=== PATIENT | male | born 1960 | race Caucasian/White ===

== ENCOUNTER 2019-05-22 17:00 | Emergency (ER) | payer OTHER ==
[2019-05-22] MEDS ORDERED: ROPIVACAINE 0.5% PF 20 ML VIAL SUBQ STA (17:24)
[2019-05-22] MEDS ORDERED: TETANUS/DIPHTHERIA/PERTUSSIS 0.5 ML SYRINGE IM ONE (17:25)
--- NOTE | 2019-05-22 17:27 | ED Physician Documentation ---
PD HPI UPPER EXT INJURY - Stated complaint Stated Complaint: LT FING LAC - Chief complaint Chief Complaint: Ext Problem - History obtained from History obtained from: Patient - History of Present Illness Location: Left, Finger (3rd) Where injury occurred: Home Timing - onset: How many hours ago (1) Timing - duration: Hours (1) Timing - details: Abrupt onset Pain level max: 5 Pain level now: 4 Improved by: Rest, Ice, Immobilization Worsened by: Moving, Palpating Associated symptoms: No: Weakness, Numbness, Tingling Contributing factors: No: Anticoagulated Similar symptoms before: Has not had sx before Recently seen: Not recently seen - Additonal information Additional information: pt is right handed. unknown last tetanus. Review of Systems Constitutional: denies: Fever, Chills GI: denies: Vomiting, Diarrhea Skin: denies: Rash Musculoskeletal: denies: Neck pain, Back pain Neurologic: denies: Headache PD PAST MEDICAL HISTORY - Past Medical History Past Medical History: Yes Cardiovascular: Hypertension, High cholesterol - Past Surgical History Past Surgical History: No - Present Medications Home Medications: Ambulatory Orders Medication Instructions Recorded Confirmed Aspirin Chewable [St Jef 81 mg PO DAILY 05/22/19 05/22/19 Aspirin] Cephalexin [Keflex] 500 mg PO Q6H #28 capsule 05/22/19 Lisinopril [Prinivil] 10 mg PO 05/22/19 Metoprolol Succinate 25 mg PO 05/22/19 Rosuvastatin Calcium [Crestor] 10 mg PO 05/22/19 - Allergies Allergies/Adverse Reactions: Allergies Allergy/AdvReac Type Severity Reaction Status Date / Time No Known Drug Allergies Allergy Verified 05/22/19 17:10 - Family History Family history: reports: Non contributory - Immunizations Immunizations are current?: No Immunizations: TDAP >10years/unknown PD ED PE NORMAL - Vitals Vital signs reviewed: Yes - General General: Alert and oriented X 3, No acute distress - HEENT HEENT: Moist mucous membranes - Neck Neck: Supple, no meningeal sign - Cardiac Cardiac: RRR - Respiratory Respiratory: No respiratory distress, Clear bilaterally - Derm Derm: Warm and dry - Extremities Extremities: Other (L 3rd digit - complex avulsion of the tip of the digit. NVI) - Neuro Neuro: Alert and oriented X 3 - Psych Psych: Normal mood, Normal affect Results - Vitals Vitals: Oxygen O2 Source Room air - Rads (name of study) finger xray Radiology: Prelim report reviewed, EMP read contemporaneously, See rad report (Possible small bony avulsion at the tip of the distal phalanx tuft.) PD MEDICAL DECISION MAKING - ED course Complexity details: considered differential, d/w patient ED course: 58-year-old male presents after a distal fingertip amputation. The skin is missing from the end of the finger. The bone is exposed. I consulted orthopedics who came and evaluated the patient. Dr. Caruso oversewed the digit. We will place on antibiotics for home. Patient counseled regarding signs and symptoms for which I believe and urgent re-evaluation would be necessary. Patient with good understanding of and agreement to plan and is comfortable going home at this time This document was made in part using voice recognition software. While efforts are made to proofread this document, sound alike and grammatical errors may occur. Departure - Departure Disposition: 01 Home, Self Care Clinical Impression: Fingertip amputation Qualifiers: Encounter type: initial encounter Qualified Code(s): S68.129A - Partial traumatic metacarpophalangeal amputation of unspecified finger, initial encounter Condition: Good Instructions: ED Laceration Amputation Finger Tip Open Tx Follow-Up: Amilcar Caruso MD [Provider Admit Priv/Credential] - 05/28/19 Prescriptions: Cephalexin [Keflex] 500 mg PO Q6H #28 capsule Comments: Return if you worsen. Return especially for redness, swelling or drainage from the wound. Take all antibiotics until gone. Follow-up with Dr. Caruso on for further care. Call the clinic on Saturday for an appointment time. Discharge Date/Time: 05/22/19 20:25
--- NOTE | 2019-05-22 18:25 | XRAY Report ---
Reason: L 3rd digit vs log splitter Procedure Date: 05/22/2019 Accession Number: [id number] / [id number] Procedure: XR - Finger(s) LT CPT Code: FULL RESULT: EXAM: LEFT THIRD DIGIT RADIOGRAPHY EXAM DATE: 05/22/2019 05:51 PM. CLINICAL HISTORY: L 3rd digit vs log splitter. COMPARISON: None. TECHNIQUE: 3 views. FINDINGS: Bones: Possible small bony avulsion at the tip of the tuft. Joints: Normal. No subluxations. Soft Tissues: Soft tissue avulsion IMPRESSION: Possible small bony avulsion at the tip of the distal phalanx tuft RADIA
[2019-05-22] MEDS ORDERED: cefTRIAXone 1 GM VIAL IM STA (20:02)
[2019-05-22] MEDS ORDERED: LIDOCAINE 1% 2 ML VIAL MC ONE (20:02)
[2019-05-22 20:10] VITALS: BP 144/90
--- NOTE | 2019-05-22 22:48 | CONSULTATION NOTE ---
DATE OF SERVICE: 05/22/2019 Physician: Amilcar Caruso MD ORTHOPAEDIC EMERGENCY ROOM CONSULT NOTE REFERRING PHYSICIAN: Dr. Joey Gee of the Emergency Room Department. 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 X-rays shows the possibility of a small avulsion fracture off the dis markus phalanx. His wound was quite clean, but there was a question of whether or not we could get adeq uate coverage of the distal phalanx versus removal of part of the distal phalanx. Orthopedics was co nsulted to give our opinion on how best to proceed. The patient has not had any problems with this f richard in the past. PHYSICAL EXAMINATION: The patient's left middle finger was examined. He had a somewhat complex woun d at the tip of his finger. There was a palpable tip of his distal phalanx underneath his fingernail . With gentle approximation though we were able to get essential full soft tissue coverage of this d istal phalanx. Wound had been copiously irrigated. The patient had an ongoing digital nerve block. Flaps of the wound appeared to be viable. IMAGING: X-rays showed the soft tissue avulsion off the tip of the distal phalanx. ? Small avulsion of bone that might have been from in the soft tissues from the distal phalanx. ASSESSMENT: Status post small degloving injury off the tip of the left middle finger. PLAN: We proceeded to place three stitches of 4-0 nylon, two involving the nail of the finger to krystal pproximate the full-thickness skin flap covering the exposed portion of the distal phalanx. The roland ent tolerated the procedure well. We will plan on putting a nonstick dressing and tubular gauze dres sing for the finger. Recommend a short course of analgesics as needed. Also, a five-day course of K eflex would be adequate as well. He will follow up in Orthopedic Clinic in approximately five to six days for wound check and see how he has done clinically. TD: 05/22/2019 20:14
== END 2019-05-22 20:25 | disposition home or self-care (01) ==
LOC: ED 17:00
DX: S61.313A Laceration without foreign body of left middle finger with damage to nail, initial encounter (principal); W29.3XXA Contact with powered garden and outdoor hand tools and machinery, initial encounter; Y93.H9 Activity, other involving exterior property and land maintenance, building and construction; Y92.009 Unspecified place in unspecified non-institutional (private) residence as the place of occurrence of the external cause; I10 Essential (primary) hypertension; Z79.899 Other long term (current) drug therapy; Z79.82 Long term (current) use of aspirin
CPT/HCPCS: 12001; 73140; 90471; 90715; 99283; 99284; J2795

== ENCOUNTER 2020-11-10 07:28 | Outpatient (CLI) | payer OTHER ==
[2020-11-10 16:03] LABS: CHOL/HDL RATIO 3.6 (<5.0); CHOLESTEROL 195 mg/dL; HDL CHOLESTEROL 54 mg/dL; LDL CHOLESTEROL,CALCULATED 123 mg/dL; LDL CHOLESTEROL,DIRECT 121 mg/dL; LDL/HDL RATIO 2.3 (<3.6); TRIGLYCERIDES 90 mg/dL; VLDL CHOLESTEROL 18 mg/dL
== END 2020-11-10 07:29 | disposition home or self-care (01) ==
LOC: LAB.S 07:28
PROVIDERS: ATTEND Internal Medicine Cardiovascular Disease
DX: I10 Essential (primary) hypertension (principal); Z95.2 Presence of prosthetic heart valve; Z95.1 Presence of aortocoronary bypass graft; E78.5 Hyperlipidemia, unspecified; E53.8 Deficiency of other specified B group vitamins
CPT/HCPCS: 36415; 80061; 82607; 83721

== ENCOUNTER 2021-05-02 07:15 | Outpatient (CLI) | payer OTHER ==
[2021-05-02 15:15] LABS: CHOL/HDL RATIO 2.6 (<5.0); CHOLESTEROL 128 mg/dL; HDL CHOLESTEROL 49 mg/dL; LDL CHOLESTEROL,CALCULATED 62 mg/dL; LDL/HDL RATIO 1.3 (<3.6); TRIGLYCERIDES 83 mg/dL; VLDL CHOLESTEROL 17 mg/dL
== END 2021-05-02 07:16 | disposition home or self-care (01) ==
LOC: LAB.S 07:15
PROVIDERS: ATTEND Physician Assistant
DX: I25.10 Atherosclerotic heart disease of native coronary artery without angina pectoris (principal)
CPT/HCPCS: 36415; 80061; 83721

== ENCOUNTER 2021-09-02 09:27 | Outpatient (CLI) | payer OTHER ==
[2021-09-02 15:38] LABS: CALCIUM 9.4 mg/dL (8.5-10.3); CREATININE 0.8 mg/dL (0.6-1.2); POTASSIUM 4.5 mmol/L (3.5-5.0)
== END 2021-09-02 09:28 | disposition home or self-care (01) ==
LOC: LAB.S 09:27
PROVIDERS: ATTEND Registered Nurse
DX: I10 Essential (primary) hypertension (principal)
CPT/HCPCS: 36415; 80048